=== PATIENT | female | born 1950 | race Caucasian/White ===

== ENCOUNTER → 2017-12-11 | Outpatient (CLI) | payer MEDICARE ==
[2016-10-05 14:23] VITALS: BP 148/75
[~2017-12-11] MED LIST: ALBU2.5V14 NEB; APIX5TAB PO; ASPI-630 PO; CEFP200T PO; FLUT16SP NS; FURO-69 PO; FURO40TA4 PO; GABA-586 PO; LANS30CA66 PO; METO25TA4 PO; METO50TA6 PO; MULT-246 PO; OLOP5DRO EACHEYE; OMEG300C PO; OMEP40CA5 PO; OSEL75CA PO; SIMV40TA3 PO; VENL75TA PO
--- NOTE | 2017-12-11 09:54 | RAD ---
MR#: [id number] Date of Study: 12/11/2017 Ordering Physician: CHAD MCGRAW, Referring Physician: CHAD MCGRAW, Tech: RONY Black, RDMS, RTR APPROVED REPORT Patient Location : OUT-PATIENT Indications Lower Extremity Edema : Bilateral Risk Factors Obesity HTN Past History Compression Stockings : NoDiabetes Findings Grayscale images of the bilateral greater and lesser saphenous veins do not demonstrate any evidence of thrombus. Spectral waveforms and color Doppler do not reveal any significant reflux. The right great saphenous vein measures approximately 10 mm in the left great saphenous vein measures 8.5 mm. The reflux times are less than one second Bilateral lesser saphenous veins do not reveal any evidence of thrombus and did not show any evidence of reflux Critical Notification Critical Value: No <Conclusion> Negative for reflux in the bilateral greater and lesser saphenous veins Signed by : Chad Mcgraw, Electronically Approved : 12/11/2017 09:52:51
--- NOTE | 2017-12-11 10:06 | CARD ---
MR#: [id number] Date of Study: 12/11/2017 Ordering Physician: CHAD MCGRAW, Referring Physician: CHAD MCGRAW, Tech: Micaela Ornelas [facility] APPROVED REPORT EXAM: Two-dimensional and M-mode echocardiogram with Doppler and color Doppler. Other Information Quality : Technically LimitedHR: 76bpm Rhythm : PacemakerTechnically limited study due to body habitus. INDICATION Dyspnea 2D DIMENSIONS RVDd3.6 (2.9-3.5cm)Left Atrium(2D)4.5 (1.6-4.0cm) IVSd0.7 (0.7-1.1cm)Aortic Root(2D)2.7 (2.0-3.7cm) LVDd5.7 (3.9-5.9cm)LVOT Diameter2.0 (1.8-2.4cm) PWd1.0 (0.7-1.1cm)LVDs4.0 (2.5-4.0cm) FS (%) 30.3 %SV92.0 ml LVEF(%)57.0 (>50%) Aortic Valve AoV Peak Jose.124.0cm/sAoV VTI25.2cm AO Peak GR.6.2mmHgLVOT Peak Jose.94.3cm/s AO Mean GR.3mmHgAVA (VMAX)2.30cm2 Mitral Valve MV E Whfbrcbj078.9cm/sMV E Peak Gr.5mmHg MV DECEL [id number] A Fndvpadq42.8cm/s MV E Mean Gr.1mmHgE/A Ratio3.7 MV A Ltaijkco282ve Pulmonary Valve PV Peak Arcsraii50.6cm/s Tricuspid Valve TR P. Jnccsbfy971mq/sRAP ZHVLCDYA8nbEb TR Peak Gr.62ojYqCPZM23dsJp Pulmonary Vein S1 Qoqvxwzq66.5cm/sD2 Dnrnhjbz57.1cm/s LEFT VENTRICLE The Left Ventricle is borderline dilated. There is normal left ventricular wall thickness. The left v entricular systolic function is low normal. EF 50-55% The apex appears mildly hypokinetic. Otherwise, grossly normal LV function. Tissue Doppler imaging reveals moderate left ventricular diastolic dysfu nction. RIGHT VENTRICLE The right ventricle is mildly dilated. There is normal right ventricular wall thickness. The right ve ntricular systolic function is normal. There is a pacing lead noted in the RV/RA ATRIA The left atrium is mildly dilated. The right atrium is mildly dilated. The interatrial septum is inta ct with no evidence for an atrial septal defect or patent foramen ovale as noted on 2-D or Doppler im aging. AORTIC VALVE The aortic valve is mildly thickened. Not well visualized. Doppler and Color Flow revealed no signifi cant aortic regurgitation. There is no significant aortic valvular stenosis. MITRAL VALVE The mitral valve is thickened but opens well. There is no evidence of mitral valve prolapse. There is no mitral valve stenosis. Doppler and Color-flow revealed trace to mild mitral regurgitation. TRICUSPID VALVE The tricuspid valve is normal in structure and function. Doppler and Color Flow revealed trace tricus pid regurgitation. The PA pressure was estimated at 39 mmHg. There is no tricuspid valve prolapse or vegetation. There is no tricuspid valve stenosis. PULMONIC VALVE Doppler and Color Flow revealed no pulmonic valvular regurgitation. There is no pulmonic valvular lesly nosis. GREAT VESSELS The aortic root is normal in size. The ascending aorta is normal in size. PERICARDIAL EFFUSION There is no evidence of significant pericardial effusion. Fat pad noted. Critical Notification Critical Value: No <Conclusion> The left ventricular systolic function is low normal. EF 50-55% The apex appears mildly hypokinetic. Otherwise, grossly normal LV function. There is a pacing lead noted in the RV/RA Doppler and Color Flow revealed trace tricuspid regurgitation. The PA pressure was estimated at 39 mm Hg. Signed by : Chad Mcgraw, Electronically Approved : 12/11/2017 10:05:15
== END | disposition home or self-care (01) ==
LOC: US 08:34
PROVIDERS: ATTEND Internal Medicine Cardiovascular Disease
DX: I34.0 Nonrheumatic mitral (valve) insufficiency (principal); R60.0 Localized edema; E11.9 Type 2 diabetes mellitus without complications; I11.0 Hypertensive heart disease with heart failure; I50.30 Unspecified diastolic (congestive) heart failure
CPT/HCPCS: 93306; 93970

== ENCOUNTER → 2019-09-23 | Outpatient (CLI) | payer MEDICARE ==
[2016-10-05 14:23] VITALS: BP 148/75
[~2019-09-23] MED LIST changes: -GABA-586 PO; +GABA300C18 PO; +OMEP40CA45 PO; -OMEP40CA5 PO; +SIMV40TA18 PO; -SIMV40TA3 PO
--- NOTE | 2019-09-23 10:52 | CARD ---
MR#: [id number] Date of Study: 09/23/2019 Ordering Physician: CHAD MCGRAW, Referring Physician: CHAD MCGRAW, Tech: Opal Clifford [facility] APPROVED REPORT EXAM: Two-dimensional and M-mode echocardiogram with Doppler and color Doppler. Other Information Quality : Good INDICATION Diastolic Heart Failure, Morbid Obesity 2D DIMENSIONS RVDd3.4 (2.9-3.5cm)Left Atrium(2D)5.1 (1.6-4.0cm) IVSd0.9 (0.7-1.1cm)Aortic Root(2D)3.0 (2.0-3.7cm) LVDd4.8 (3.9-5.9cm)LVOT Diameter2.1 (1.8-2.4cm) PWd1.0 (0.7-1.1cm)LVDs3.7 (2.5-4.0cm) FS (%) 22.8 %SV49.8 ml LVEF(%)50.0 (>50%) Aortic Valve AoV Peak Jose.131.2cm/sAoV VTI25.3cm AO Peak GR.6.9mmHgLVOT Peak Jose.98.4cm/s LVOT VTI 21.09cmAO Mean GR.4mmHg LUZ ELENA (VMAX)2.16mr1MVO (VTI)2.93cm2 Mitral Valve MV E Olggzuit304.6cm/sMV DECEL LIDH465ep MV A Aztnkvgh87.9cm/sMV TTX53dk E/A Ratio3.5MVA (PHT)5.72cm2 TDI E/Lateral E'16.4E/Medial E'21.7 Tricuspid Valve TR P. Kaqgwsjq465tl/sRAP DTDMIHPJ5ryTn TR Peak Gr.18bjBnOVAM18myOa Pulmonary Vein S1 Ceutfgda54.1cm/sD2 Vkvkydcq85.2cm/s LEFT VENTRICLE The left ventricle is normal size. There is normal left ventricular wall thickness. Left ventricle sy stolic function is normal. The Ejection Fraction is 55%. There is normal LV segmental wall motion. Tr ansmitral Doppler flow pattern is Grade III-reversible restrictive diastolic dysfunction. RIGHT VENTRICLE The right ventricle is normal size. The right ventricular systolic function is normal. ATRIA The left atrium is moderately dilated. The right atrium is mildly dilated. The interatrial septum is intact with no evidence for an atrial septal defect or patent foramen ovale as noted on 2-D or Dopple r imaging. AORTIC VALVE The aortic valve is calcified but opens well. Doppler and Color Flow revealed no significant aortic r egurgitation. There is no significant aortic valvular stenosis. MITRAL VALVE The mitral valve is calcified but opens well. There is no evidence of mitral valve prolapse. There is no mitral valve stenosis. Doppler and Color-flow revealed mild mitral regurgitation. TRICUSPID VALVE The tricuspid valve is normal in structure and function. Doppler and Color Flow revealed mild tricusp id regurgitation. There is moderate pulmonary hypertension. The PA pressure was estimated at 43 mmHg. There is no tricuspid valve stenosis. PULMONIC VALVE The pulmonic valve is not well visualized. Doppler and Color Flow revealed no pulmonic valvular regur gitation. There is no pulmonic valvular stenosis. GREAT VESSELS The aortic root is normal in size. The ascending aorta is normal in size. The IVC is normal in size a nd collapses >50% with inspiration. PERICARDIAL EFFUSION There is no evidence of significant pericardial effusion. Critical Notification Critical Value: No <Conclusion> Left ventricle systolic function is normal. The Ejection Fraction is 55%. There is normal LV segmental wall motion. Transmitral Doppler flow pattern is Grade III-reversible restrictive diastolic dysfunction. The left atrium is moderately dilated. Mild mitral regurgitation. Mild tricuspid regurgitation. The PA pressure was estimated at 43 mmHg. There is no evidence of significant pericardial effusion. Signed by : Law Perez, Electronically Approved : 09/23/2019 10:51:39
== END | disposition home or self-care (01) ==
LOC: ECHO 09:39
PROVIDERS: ATTEND Internal Medicine Cardiovascular Disease
DX: I08.3 Combined rheumatic disorders of mitral, aortic and tricuspid valves (principal); I50.30 Unspecified diastolic (congestive) heart failure; I27.20 Pulmonary hypertension, unspecified
CPT/HCPCS: 93306

== ENCOUNTER → 2021-05-18 | Outpatient (CLI) | payer MEDICARE ==
[~2021-05-18] VITALS: Ht 157.5 cm; Wt 114.0 kg
[2021-05-18] VITALS (13 sets, daily range): BP systolic 91–155; BP diastolic 48–71
[~2021-05-18] MED LIST changes: +CLOP75TA PO; +CLOPIDOGREL BISULFATE 75 MG TABLET ONE; +CLOPIDOGREL BISULFATE 75 MG TABLET PO ONE; +FEXO-212 PO; +HEPARIN for ARTERIAL LINE 1,500 ML ONE; +HEPARIN for IV BOLUS 10,000 UNIT/10 ML VIAL. IART ONE; +HEPARIN for IV BOLUS 10,000 UNIT/10 ML VIAL. ONE; +IODIXANOL 320 MG/ML 100 ML VIAL. IART ONE; +IODIXANOL 320 MG/ML 100 ML VIAL. ONE; +LIDOCAINE 1% Multi-Dose 20 ML VIAL. INJ ONE; +LIDOCAINE 1% Multi-Dose 20 ML VIAL. ONE; +MIDAZOLAM HCL/PF 2 MG/2 ML VIAL. IV ONE; +MIDAZOLAM HCL/PF 2 MG/2 ML VIAL. ONE; +NITROGLYCERIN 200 MCG/2 ML SYRINGE FOR CATH/VASC LAB. IART ONE; +NITROGLYCERIN 200 MCG/2 ML SYRINGE FOR CATH/VASC LAB. ONE; -OMEP40CA45 PO; +OMEP40CA7 PO; +SPIR25TA5 PO; +TIROFIBAN 12.5MG -0.9% NS 250 ML IV ONE; +TIROFIBAN 5MG -0.9% NS 100 ML IV PRN; +VERAPAMIL 5 MG/2 ML VIAL. IART ONE; +VERAPAMIL 5 MG/2 ML VIAL. ONE; +fentaNYL PF VIAL 100 MCG/2 ML VIAL IV ONE; +fentaNYL PF VIAL 100 MCG/2 ML VIAL ONE
[2021-05-18 08:10] LABS: HEMATOCRIT 42.2 % (36.0-47.0); HEMOGLOBIN 13.8 g/dL (12.0-15.5); RED BLOOD COUNT 4.93 x10^6/uL (3.50-5.40); RED CELL DISTRIBUTION WIDTH 15.7 % (11.5-14.5); WHITE BLOOD COUNT 8.3 x10^3/uL (4.0-11.0)
[2021-05-18 08:16] LABS: PROTHROMBIN TIME PATIENT 12.6 SEC (11.7-14.0)
[2021-05-18 08:23] LABS: CALCIUM 9.2 mg/dL (8.5-10.1); CREATININE 0.7 mg/dL (0.6-1.0); GFR 82.7; POTASSIUM 4.1 mmol/L (3.5-5.1)
--- NOTE | 2021-05-18 09:54 | NUR ---
Aggrastat infusion is a bolus dose only, per Dr. Reyes.
--- NOTE | 2021-05-18 10:08 | CARD ---
MR#: [id number] Date of Study: 05/18/2021 Ordering Physician: CHAD REYES, Referring Physician: CHAD REYES, Tech: RT Herson(R) APPROVED REPORT Technologist: Hannah Szymanski RT(R) Nurse: Ximena Neves RN Procedure(s) performed: MODERATE SEDATION TIME: 50 MINS FLUORO TIME: 7.1 MIN DOSE: 142.8 GYCM2 CONTRAST: 126CC VISI LHC, Coronary angiography, RHC PCI of the 1st diagonal INDICATION The indication(s) include : unstable angina , dyspnea. [facility] Clinical Frailty Scale [facility] Clinical Frailty Scale: Managing Well Heart Failure Heart Failure: Yes If Yes, Newly Diagnosed: No If Yes, HF Type: Diastolic If Yes, NYHA Class: Class II CASE TECHNIQUE IV conscious sedation was used throughout procedure with appropriate monitoring and was performed in the presence of a registered nurse who was an independent trained observer other than the physician p erforming the procedure. During this case, Fluoroscopy and low osmolar contrast were used for imaging . Specimen(s) Removed: N/A Estimated Blood loss: 20 cc's. PROCEDURE NARRATIVE Clinical information: 71-year-old woman comes into the [facility] for evaluation of an abnormal stress test, dyspnea and ches t pressure. Procedure details: After appropriate informed consent the right wrist and right forearm were prepped and draped in usual sterile fashion. Under 1% lidocaine local anesthesia and ultrasound guidance a 6 Scottish sheath was placed in the right radial artery and a 5 Scottish sheath was placed in the right brachial vein. Next, a 5 Scottish PA catheter was advanced to the brachial vein access into the right heart and pressures a nd saturations were obtained. Diagnostic angiography was then performed with a 6 Scottish TIG catheter . LVEDP was measured with a 6 Scottish TIG catheter and a pullback was performed. Findings: Aorta 120/80 LVEDP 22 mmHg Right heart catheterization: RA 15/16/14 RV 50/4/14 PA 50/24/33 Wedge 22 mmHg PA saturation 70% Aortic saturations 96% Juan cardiac output 3.9, cardiac index 1.8 Coronary angiography: Left main is a large-caliber vessel with normal angiographic appearance LAD is a moderate to large caliber vessel with normal angiographic appearance D1 is a moderate caliber vessel with a proximal 80% stenosis Left circumflex is a moderate to large caliber nondominant vessel with mild luminal irregularities OM1 is a moderate caliber vessel with mild luminal irregularities RCA is a moderate to large caliber vessel with mild luminal irregularities Interventional technique: Based on the patient's presenting symptoms and angiographic findings and intervention was performed. Heparin and tirofiban were used for anticoagulation. Through a 6 Scottish EBU 3.5 guide catheter a Pr owater wire was placed in the first diagonal. The lesion was then angioplastied with a 2.0 x 12 mm b alloon and then stented with a 2.25 x 15 mm resolute drug-eluting stent dilated up to 14 jose. Post P CI angiography demonstrated excellent stent expansion with LOW-3 flow in the vessel no evidence of g uide or wire related complications. At case completion the patient received 600 mg of Plavix. At ca se completion the right radial sheath was removed and hemostasis was achieved via Terumo radial band in the right forearm sheath was removed and hemostasis was achieved via manual compression. No acute complications LOW Flow LOW Flow (Pre-Intervention): LOW-3 LOW Flow (Post-Intervention): LOW-3 Conclusion 1. Elevated biventricular filling pressures 2. Mild pulmonary hypertension, mean PA 33 mmHg 3. Low cardiac index 4. One-vessel coronary artery disease 5. Successful PCI of the first diagonal with implantation of a 2.25 x [address] resolute drug-eluting st ent. Recommendations Plavix 75 mg daily Continue Eliquis 5 mg p.o. twice daily Continue risk factor modification and weight loss. Cardiac rehab referral Signed by : Chad Reyes, Electronically Approved : 05/18/2021 10:08:25
--- NOTE | 2021-05-18 14:07 | NUR ---
Pt ambulated and tolerated PO. TR band dc'd. Armboard reapplied. discharge instructions reviewed with pt. New prescription plavix called to [facility] at 11:15. Pt dc'd to home in private vehicle with family.
== END | disposition home or self-care (01) ==
LOC: CCL 07:12
PROVIDERS: ATTEND Internal Medicine Cardiovascular Disease
DX: I25.110 Atherosclerotic heart disease of native coronary artery with unstable angina pectoris (principal); R06.00 Dyspnea, unspecified; I48.91 Unspecified atrial fibrillation; E78.00 Pure hypercholesterolemia, unspecified; I10 Essential (primary) hypertension; G47.30 Sleep apnea, unspecified; K21.9 Gastro-esophageal reflux disease without esophagitis; E11.9 Type 2 diabetes mellitus without complications; M19.90 Unspecified osteoarthritis, unspecified site; F32.9 Major depressive disorder, single episode, unspecified; Z79.82 Long term (current) use of aspirin; Z79.899 Other long term (current) drug therapy; Z98.890 Other specified postprocedural states; Z88.2 Allergy status to sulfonamides; Z88.8 Allergy status to other drugs, medicaments and biological substances
CPT/HCPCS: 36415; 80048; 85027; 85610; 93460; 99152; 99153; C1725; C1769; C1773; C1874; C1887; C1894; C9600; J1644; J2250; J3010; J3246; J3490; Q9967; 92928